=== PATIENT | female | born 1970 | race Caucasian/White ===

== ENCOUNTER 2020-08-26 18:53 | Emergency (ER) | payer SELFPAY ==
[~2020-08-26] VITALS: Ht 172.7 cm; Wt 67.4 kg
[~2020-08-26 18:53] MED LIST: AMOX-291 PO; CARI350T PO; CIPR500T87 PO; CITA20TA9 PO; CLON1TAB11 PO; DIAZ10TA4 PO; LEVO125T63 PO; METR500T PO; OXYC-307 PO; PANT20TA2 PO; PANT40TA6 PO; PROM25VI5 PO; VALP250C59 PO
[2020-08-26 18:57] VITALS: BP 180/90
--- NOTE | 2020-08-26 19:08 | NUR ---
Patient/Caregiver given discharge instructions and they have confirmed that they understand the instructions. Patient ambulatory with steady gait.
== END 2020-08-26 19:10 ==
LOC: ED 19:04
DX: F41.1 Generalized anxiety disorder (principal); R11.0 Nausea; Z88.0 Allergy status to penicillin; Z76.0 Encounter for issue of repeat prescription; Z90.710 Acquired absence of both cervix and uterus; Z79.899 Other long term (current) drug therapy
CPT/HCPCS: 99281

== ENCOUNTER 2020-10-08 18:00 | Emergency (ER) | payer MEDICAID ==
[~2020-10-08] VITALS: Ht 172.7 cm; Wt 69.9 kg
--- NOTE | 2020-10-08 18:30 | NUR ---
ASSUMED CARE OF PATIENT. PT IS A 50/F COMPLAINING OF A "FLAIR UP OF HER HASHIMOTOS" BUT ALSO SOME FACIAL NUMBNESS. SHE HAS RECENTLY MOVED BACK TO [place] AND IS HAVING DIFFICULTY ESTABLISHING WITH A PRIMARY MD TO MANAGE HER MEDICATIONS. SHE HAS BEEN OUT OF MEDICATIONS FOR ABOUT A WEEK. LAB AT BEDSIDE TO DRAW. PATIENT IN GOWN, WARM BLANKETS OFFERED, MUSICAL ENGINEER, CYCLING VITALS, AND CONTINUOUS SPO2. CALL LIGHT WITHIN REACH.
--- NOTE | 2020-10-08 18:57 | NUR ---
GAVE REPORT TO BORIS MONGE FOR SHIFT CHANGE.
--- NOTE | 2020-10-08 19:00 | NUR ---
bedside report from Chloe MONGE, pt care transferred at this time. pt is resting on gurney, nad, appears comfortable, denies additional questions or needs at this time, bed in lowest, call light on lap. waiting for lab results, LILY.
[2020-10-08 19:04] LABS: BASOPHILS % (AUTO) 1 % (0-1); EOSINOPHILS % (AUTO) 3 % (1-7); LYMPHOCYTES % (AUTO) 43 % (22-44); MEAN CORPUSCULAR HEMOGLOBIN 31.3 pg (27.0-34.8); MEAN CORPUSCULAR HGB CONC 33.9 g/dL (32.4-35.8); MEAN PLATELET VOLUME 7.8 fL (7.4-10.4); MONOCYTES % (AUTO) 5 % (2-9); NEUTROPHILS % (AUTO) 48 % (42-75); PLATELET COUNT 240 x10^3/uL (130-400); RED BLOOD COUNT 4.56 x10^6/uL (3.82-5.3); RED CELL DISTRIBUTION WIDTH 13.3 % (9.6-15.2)
[2020-10-08 19:09] LABS: MD NO
[2020-10-08 19:15] LABS: ANION GAP 3 mmol/L (5-15); CALCIUM 8.3 mg/dL (8.5-10.1); CHLORIDE 107 mmol/L (98-107)
[2020-10-08] MEDS ORDERED: LORazepam 1MG TABLET PO ONE (19:30)
[2020-10-08] MEDS ORDERED: ONDANSETRON ODT 8 MG PO ONE (19:30)
[2020-10-08 19:42] LABS: FREE T4 (FREE THYROXINE) 1.17 ng/dL (0.76-1.46)
[2020-10-08] MEDS ORDERED: ONDANSETRON ODT 8 MG ONE (19:44)
[2020-10-08] MEDS ORDERED: LORazepam 1MG TABLET ONE (19:45)
--- NOTE | 2020-10-08 20:04 | NUR ---
pt medicated per mar, pt nad, denies additional questions or needs at this time. pt appears comfortable on gurney but is anxious regarding facial numbness, no deficits noted on exam. pt vss. wctm.
[2020-10-08 20:47] VITALS: BP 129/85
--- NOTE | 2020-10-08 20:48 | NUR ---
Patient given discharge instructions and they have confirmed that they understand the instructions. Patient ambulatory with steady gait. nad, denies additional questions or needs, provided resources for proivder recommendations. no personal belongings left in room at time of dc.
== END 2020-10-08 20:50 | disposition home or self-care (01) ==
LOC: ED 19:59
DX: E89.0 Postprocedural hypothyroidism (principal); Z91.14 Patient's other noncompliance with medication regimen; F41.9 Anxiety disorder, unspecified; F43.9 Reaction to severe stress, unspecified; R94.31 Abnormal electrocardiogram [ECG] [EKG]
CPT/HCPCS: 36415; 80048; 84439; 84443; 85025; 93005; 99284; Q0162

== ENCOUNTER 2020-11-28 12:17 | Emergency (ER) | payer MEDICAID ==
[~2020-11-28] VITALS: Ht 172.7 cm; Wt 71.7 kg
[~2020-11-28 12:17] MED LIST changes: -OXYC-307 PO; +OXYC-380 PO
[2020-11-28] MEDS ORDERED: METOCLOPRAMIDE 5 MG/ML, 2ML ONE (12:51)
[2020-11-28] MEDS ORDERED: KETOROLAC 30 MG/1 ML ONE (12:51)
[2020-11-28] MEDS ORDERED: DIPHENHYDRAMINE 50 MG/ML, 1ML ONE (12:51)
[2020-11-28] MEDS ORDERED: DIPHENHYDRAMINE 50 MG/ML, 1ML IVPush ONE (13:00)
[2020-11-28] MEDS ORDERED: SODIUM CHLORIDE 0.9% 1,000ML IVBOLUS ONE (13:00)
[2020-11-28] MEDS ORDERED: METOCLOPRAMIDE 5 MG/ML, 2ML IVPush ONE (13:00)
[2020-11-28] MEDS ORDERED: KETOROLAC 30 MG/1 ML IVPush ONE (13:00)
--- NOTE | 2020-11-28 13:31 | NUR ---
THIS IS A 50 YEAR OLD FEMALE WHO C/O OF A MIGRANE AND NEEDS SYNTHROID REFILL
--- NOTE | 2020-11-28 13:41 | NUR ---
PATIENT IS RESTING COMFORTABLY WITH WARM BLANKETS AND WARMER. MEDICATED PER EMAR. PAIN IS IMPROVING. PATIENT WAS AMBULATORY TO THE BATHROOM WITH STEADY GAIT. NO ADDITIONAL NEEDS. CALL LIGHT WITHIN REACH.
[2020-11-28 14:24] VITALS: BP 124/68
== END 2020-11-28 14:26 | disposition home or self-care (01) ==
LOC: ED 14:24
DX: G43.909 Migraine, unspecified, not intractable, without status migrainosus (principal); E03.9 Hypothyroidism, unspecified; R11.2 Nausea with vomiting, unspecified; K21.9 Gastro-esophageal reflux disease without esophagitis; G89.29 Other chronic pain
CPT/HCPCS: 96361; 96374; 96375; 99284; J1200; J1885; J2765; J7030

== ENCOUNTER 2020-12-08 13:55 | Emergency (ER) | payer MEDICAID ==
[~2020-12-08] VITALS: Ht 172.7 cm; Wt 68.9 kg
[2020-12-08 14:29] LABS: BASOPHILS % (AUTO) 1 % (0-1); EOSINOPHILS % (AUTO) 1 % (1-7); LYMPHOCYTES % (AUTO) 32 % (22-44); MD NO; MEAN CORPUSCULAR HEMOGLOBIN 32.3 pg (27.0-34.8); MEAN CORPUSCULAR HGB CONC 34.2 g/dL (32.4-35.8); MEAN PLATELET VOLUME 7.5 fL (7.4-10.4); MONOCYTES % (AUTO) 6 % (2-9); NEUTROPHILS % (AUTO) 60 % (42-75); PLATELET COUNT 284 x10^3/uL (130-400); RED BLOOD COUNT 4.83 x10^6/uL (3.82-5.3); RED CELL DISTRIBUTION WIDTH 13.8 % (9.6-15.2)
--- NOTE | 2020-12-08 14:32 | NUR ---
PT IN BED WITH NO SIGNS OR SYMPTOMS OF ACUTE DISTRESS NOTED RESPIRATIONS EVEN AND UNLABORED WITH FAMILY MEMBER AT BEDSIDE. LIGHTS LOW IN ROOM FOR COMFORT, LAB IN TO DRAW. PT WITH BED RAILS UP BILATERALLY AND CALL LIGHT IN LAP.
[2020-12-08 14:40] LABS: ANION GAP 7 mmol/L (5-15); CALCIUM 8.5 mg/dL (8.5-10.1); CHLORIDE 107 mmol/L (98-107); CREATININE 0.78 mg/dL (0.55-1.02)
[2020-12-08] MEDS ORDERED: PROCHLORPERAZINE 5 MG/ML, 2ML ONE (16:42)
[2020-12-08] MEDS ORDERED: DIPHENHYDRAMINE 50 MG/ML, 1ML ONE (16:43)
[2020-12-08] MEDS ORDERED: KETOROLAC 30 MG/1 ML ONE (16:43)
[2020-12-08] MEDS ORDERED: SODIUM CHLORIDE 0.9% 1,000ML IVBOLUS ONE (17:00)
[2020-12-08] MEDS ORDERED: DIPHENHYDRAMINE 50 MG/ML, 1ML IVPush ONE (17:00)
[2020-12-08] MEDS ORDERED: LORazepam 2 MG/ML, 1ML IVPush ONE (17:00)
[2020-12-08] MEDS ORDERED: PROCHLORPERAZINE 5 MG/ML, 2ML IVPush ONE (17:00)
[2020-12-08] MEDS ORDERED: SODIUM CHLORIDE FLUSH 10ML SYR IVF ONE (17:00)
[2020-12-08] MEDS ORDERED: KETOROLAC 30 MG/1 ML IVPush ONE (17:00)
[2020-12-08] MEDS ORDERED: LORazepam 2 MG/ML, 1ML ONE (17:07)
[2020-12-08 18:09] VITALS: BP 128/72
== END 2020-12-08 18:42 | disposition home or self-care (01) ==
LOC: ED 16:30
DX: G43.909 Migraine, unspecified, not intractable, without status migrainosus (principal); I10 Essential (primary) hypertension; K21.9 Gastro-esophageal reflux disease without esophagitis; E03.9 Hypothyroidism, unspecified; Z90.49 Acquired absence of other specified parts of digestive tract; Z90.710 Acquired absence of both cervix and uterus
CPT/HCPCS: 36415; 80048; 84443; 85025; 96361; 96374; 96375; 99284; J0780; J1200; J1885; J2060; J7030